=== PATIENT | male | born 1960 | race Hispanic/Latino ===

== ENCOUNTER 2023-11-12 17:36 | Emergency (ER) | payer BC ==
[2023-11-12] MEDS ORDERED: ONDANSETRON 4 MG/2 ML VIAL ONE (18:37)
[2023-11-12] MEDS ORDERED: NA CHLORIDE 0.9% 1,000 ML ONE (18:37)
[2023-11-12 18:38] LABS: Absolute Eosinophils 0.1 K/uL (0-0.5); Absolute Lymphocytes (CBC) 1.3 K/uL (0.7-4.9); Absolute Monocytes 0.8 K/uL (0.1-1.3); Absolute Neutrophil 12.4 K/uL (1.8-8.0); Basophils % 0.2 % (0-1.3); Eosinophils % 0.9 % (0-4.4); Hematocrit 38.7 % (39.6-49.0); Hemoglobin 12.7 g/dL (13.6-17.9); Lymphocytes % 8.9 % (15.3-44.8); MCH 30.1 pg (27.0-35.0); MCHC 32.9 g/dL (32.0-36.0); MCV 91.3 fL (80-100); Monocytes % 5.6 % (3.3-12.3); Neutrophils % 84.4 % (41.7-73.7); Nucleated Red Blood Cells % 0.1 % (0-0); Platelets 207 thou/uL (152-406); RBC Red Blood Cell Count 4.24 M/uL (4.33-5.43); Red Cell Distribution Width 14.5 % (12.1-15.2)
[2023-11-12 18:49] LABS: Troponin High Sensitivity 8.2 pg/mL (<58.9)
--- NOTE | 2023-11-12 19:22 | ER ---
Nurse's Notes [facility] Name: Julito Williamson Age: 63 yrs Sex: Male : 1960 Arrival Date: 11/12/2023 Time: 17:36 Bed 16 Private MD: Diagnosis: Dehydration Presentation: 11/11 17:35 Chief complaint: EMS states: patient was dizzy, unsteady upon arrival. kj2 18:48 Coronavirus screen: Vaccine status: Patient reports receiving the 2nd dose of the covid kj2 vaccine. Ebola Screen: No symptoms or risks identified at this time. Initial Sepsis Screen: Does the patient meet any 2 criteria? No. Patient's initial sepsis screen is negative. Does the patient have a suspected source of infection? No. Patient's initial sepsis screen is negative. Risk Assessment: Do you want to hurt yourself or someone else? Patient reports no desire to harm self or others. Onset of symptoms was November 12, 2023 at 17:35. Care prior to arrival: Medication(s) given: 1 liter lactated ringers. 18:48 Method Of Arrival: EMS: [facility] kj2 18:48 Acuity: JACE 3 kj2 Triage Assessment: 18:54 General: Appears in no apparent distress. Behavior is cooperative. Pain: Denies pain. kj2 EENT: Neuro: Level of Consciousness is awake, alert, Oriented to person, place, time. Cardiovascular: Patient's skin is warm and dry. Respiratory: Airway is patent Respiratory effort is unlabored. GI: Abdomen is. : No deficits noted. Historical: - Allergies: 19:41 No Known Allergies; kj2 - Immunization history:: Adult Immunizations unknown. - Infectious Disease History:: Denies. - Social history:: Smoking status: Patient reports the use of cigarette tobacco products, unknown amount. Screenin:40 [facility] ED Fall Risk Assessment (Adult) History of falling in the last 3 months, kj2 including since admission No falls in past 3 months (0 pts) Confusion or Disorientation No (0 pts) Intoxicated or Sedated No (0 pts) Impaired Gait No (0 pts) Mobility Assist Device Used No (0 pt) Altered Elimination No (0 pt) Score/Fall Risk Level 0 - 2 = Low Risk Maintained a safe environment, Educated pt \T\ family on fall prevention, incl call for assistance when getting out of bed, Hourly rounding (assess needs \T\ fall precautionary measures) done. Abuse screen: Denies threats or abuse. Denies injuries from another. Nutritional screening: No deficits noted. Tuberculosis screening: No symptoms or risk factors identified. Assessment: 18:57 General: Appears in no apparent distress. Behavior is cooperative. Pain: Denies pain. kj2 Neuro: Level of Consciousness is awake, alert, Oriented to person, place, time, situation. Cardiovascular: Patient's skin is warm and dry. Respiratory: Airway is patent Respiratory effort is unlabored. GI: No deficits noted. : No deficits noted. 19:18 Reassessment: Patient appears in no apparent distress at this time. Patient and/or kj2 family updated on plan of care and expected duration. Pain level reassessed. Patient is alert, oriented x 3, equal unlabored respirations, skin warm/dry/pink. 19:37 Reassessment: MD advised to only give 1 liter (1000 ml) normal saline. kj2 Vital Signs: 17:35 BP 117 / 68; Pulse 80; Resp 20; Temp 97.7(O); Pulse Ox 100% on 2 lpm NC; kj2 17:35 BP 117 / 68; Pulse 80; Resp 18; Temp 97.7; Pulse Ox 100% on R/A; kj2 18:35 BP 123 / 73; Pulse 77; Resp 16; Pulse Ox 97% on R/A; kj2 20:03 BP 124 / 75; Pulse 76; Resp 18; Pulse Ox 98% on R/A; kj2 ED Course: 17:37 Patient arrived in ED. ec2 17:37 Andrea Vizcarra MD is Attending Physician. ec2 18:27 Geeta Nuñez, JEROME is Primary Nurse. kj2 18:52 Triage completed. kj2 18:53 Arm band placed on. kj2 19:01 Patient has correct armband on for positive identification. Bed in low position. Call kj2 light in reach. Provided Education on: call light, fall precautions. 19:42 No provider procedures requiring assistance completed. IV discontinued, intact, kj2 bleeding controlled, No redness/swelling at site. Pressure dressing applied. Administered Medications: 18:42 Drug: NS 0.9% IV 2000 ml IV at 1 bolus Per protocol; 1000 mL bolus {Note: 1000 ml given kj2 as advised by ordering MD.} Route: IV; Rate: 1 bolus; Site: left wrist; 19:40 Follow up: IV Status: Completed infusion kj2 18:47 Drug: Ondansetron IVP 4 mg IVP once; over 2 minutes Route: IVP; Site: left wrist; kj2 19:54 Follow up: Response: No adverse reaction kj2 Medication: 19:41 VIS not applicable for this client. kj2 Outcome: 19:22 Discharge ordered by . ec2 19:43 Condition: stable kj2 19:53 Discharged to home ambulatory, with friend, kj2 19:53 Discharge instructions given to Instructed on Demonstrated understanding of instructions, follow-up care, 20:04 Patient left the ED. kj2 Signatures: Andrea Vizcarra MD MD ec2 Geeta Nuñez RN RN kj2 Corrections: (The following items were deleted from the chart) 18:57 18:48 Chief complaint: EMS states: patient was dizzy, unsteady upon arrival kj2 kj2 18:57 18:48 BP 117 / 68; Pulse 80bpm; Resp 20bpm; Pulse Ox 100% 2 lpm Nasal Cannula; Temp kj2 97.7F Oral; kj2 19:01 18:59 BP 117 / 68; Pulse 80bpm; Resp 18bpm; Pulse Ox 100% RA; Temp 97.7F; kj2 kj2 19:39 18:42 NS 0.9% IV 2000 ml IV at 1 bolus in left wrist kj2 kj2
--- NOTE | 2023-11-12 19:22 | EDPHYS ---
Physician Documentation [facility] Name: Julito Williamson Age: 63 yrs Sex: Male : 1960 Arrival Date: 11/12/2023 Time: 17:36 Bed 16 Private MD: ED Physician Andrea Vizcarra HPI: 11/11 17:45 This 63 yrs old Male presents to ER via Unassigned with complaints of Concern for ec2 dehydration. 17:45 Patient arrives today for evaluation due to concern for possible dehydration. Was ec2 apparently working and became lightheaded. EMS reportedly picked him up and noted to have hypertensive blood pressures. Patient reports no chest pain or difficulty breathing, does report some lightheadedness as well as some nausea. Patient reports symptoms are improving since EMS had placed an IV and gave crystalloid.. Historical: - Allergies: 19:41 No Known Allergies; kj2 - Immunization history:: Adult Immunizations unknown. - Infectious Disease History:: Denies. - Social history:: Smoking status: Patient reports the use of cigarette tobacco products, unknown amount. ROS: 17:45 Constitutional: as per hpi ec2 Exam: 17:45 Constitutional: GEN: NAD Head: atraumatic Eyes: EOMI Ears: External ears are ec2 normal. CV: regular rate LUNGS: no respiratory distress ABD: non-distended SKIN: no evidence of rashes MSK: no evidence of trauma NEURO: moves all extremities equally Vital Signs: 17:35 BP 117 / 68; Pulse 80; Resp 20; Temp 97.7(O); Pulse Ox 100% on 2 lpm NC; kj2 17:35 BP 117 / 68; Pulse 80; Resp 18; Temp 97.7; Pulse Ox 100% on R/A; kj2 18:35 BP 123 / 73; Pulse 77; Resp 16; Pulse Ox 97% on R/A; kj2 20:03 BP 124 / 75; Pulse 76; Resp 18; Pulse Ox 98% on R/A; kj2 MDM: 17:45 Data reviewed: vital signs. ED course: Patient arrives today due to concern for ec2 dehydration. Examination remarkable for well-appearing nontoxic vigorous otherwise in no acute distress with a reassuring examination. Will obtain lab work, EKG and give the patient crystalloid. Differential includes processes such as electrolyte disturbances, dehydration, anemia, arrhythmia. 17:47 Patient medically screened. ec2 18:57 ED course: Metabolic profile shows renal dysfunction with a creatinine of 1.72 and GFR ec2 44. CBC shows slight anemia, slight leukocytosis. Troponin is within normal ranges. Patient denies any infectious symptoms. On reassessment patient remains well-appearing, normotensive and in no acute distress. Will discharge home have the patient follow-up expectantly. Return precautions given. . 19:21 ED course: EKG independently reviewed and interpreted by me, shows normal sinus rhythm, ec2 rate of 72, no acute ST segment elevations, intervals are nonconcerning.. 11/11 17:37 Order name: Basic Metabolic Panel; Complete Time: 18:56 ec2 11/11 17:37 Order name: CBC with Diff; Complete Time: 18:56 ec2 11/11 17:37 Order name: Troponin HS; Complete Time: 18:56 ec2 11/11 17:37 Order name: Cardiac monitoring; Complete Time: 19:16 ec2 11/11 17:37 Order name: EKG - Nurse/Tech; Complete Time: 19:16 ec2 11/11 17:37 Order name: IV Saline Lock; Complete Time: 18:27 ec2 11/11 17:37 Order name: Labs collected and sent; Complete Time: 18:25 ec2 11/11 17:37 Order name: O2 Per Protocol; Complete Time: 18:27 ec2 11/11 17:37 Order name: O2 Sat Monitoring; Complete Time: 18:27 ec2 Administered Medications: 18:42 Drug: NS 0.9% IV 2000 ml IV at 1 bolus Per protocol; 1000 mL bolus {Note: 1000 ml given kj2 as advised by ordering MD.} Route: IV; Rate: 1 bolus; Site: left wrist; 19:40 Follow up: IV Status: Completed infusion kj2 18:47 Drug: Ondansetron IVP 4 mg IVP once; over 2 minutes Route: IVP; Site: left wrist; kj2 19:54 Follow up: Response: No adverse reaction kj2 Disposition Summary: 11/12/23 19:22 Discharge Ordered Notes: Location: Home ec2 Condition: Stable ec2 Diagnosis - Dehydration ec2 Followup: ec2 - With: Private Physician - When: - Reason: Re-evaluation by your physician Discharge Instructions: - Discharge Summary Sheet ec2 - Dehydration, Adult ec2 Forms: - Medication Reconciliation Form ec2 - Antibiotic Education ec2 - Prescription Opioid Use ec2 - Patient Portal Instructions ec2 - Leadership Thank You Letter ec2 - Work release form kj2 Signatures: Dispatcher [employer] EDAndrea Kahn MD MD ec2 Geeta Nuñez RN RN kj2 Corrections: (The following items were deleted from the chart) 17:38 17:38 BASIC METABOLIC PANEL+C.LAB.BRZ ordered. EDMS EDMS 17:38 17:38 CBC+H.LAB.BRZ ordered. EDMS EDMS 17:38 17:38 Troponin High Sensitivity+C.LAB.BRZ ordered. EDMS EDMS
[2023-11-12 23:56] VITALS: BP 124/75; O2SAT 98
--- NOTE | 2023-11-15 17:06 | EKG ---
Test Date: 2023-11-12 Test Time: 19:07:50 Engraver: JAVY MEASUREMENT RESULTS: Intervals: Rate: 72 MA: 174 QRSD: 96 QT: 390 QTc: 427 [place]: P: 44 MA: 174 QRS: 54 T: 34 INTERPRETIVE STATEMENTS: Normal sinus rhythm Normal ECG No previous ECG available for comparison Electronically Signed On 11-15-23 16:59:13 CDT by Neri Mclaughlin
== END 2023-11-12 20:04 | disposition home or self-care (01) ==
LOC: ER 17:36
DX: E86.0 Dehydration (principal)
CPT/HCPCS: 96361; 85025; 80048; 36415; 84484; 96374; 99284; J2405; J7030; 93005